=== PATIENT | male | born 1985 | race Caucasian/White ===

== ENCOUNTER 2024-04-04 07:44 | Outpatient (CLI) | payer OTHER, SELFPAY ==
--- NOTE | 2024-04-04 08:15 | CRLHL7_ITS ---
For Patients: As a result of the Century Cures Act, medical imaging exams and procedure reports are released immediately into your electronic medical record. You may view this report before your referring provider. If you have questions, please contact your health care provider. Indication: LEFT HIP IMPINGEMENT SYNDROME Procedure : Informed consent was obtained. The site was marked. Time-out was performed. The skin of the left hip was cleansed with ChloraPrep. A sterile drape was placed. 8 cc of 1 percent lidocaine was administered for superficial anesthesia. Subsequently a 22 gauge spinal needle was introduced into the left hip joint under intermittent fluoroscopic guidance. Injection of 2 cc nonionic Omnipaque 240 contrast confirmed intra-articular location. Subsequently 11 cc of dilute gadolinium were injected. The needle was removed and hemostasis achieved with direct pressure. A dressing was placed. The patient tolerated the procedure well without immediate complication and was immediately sent to MRI for imaging. Total fluoroscopy time 16 seconds. Impression: Successful fluoroscopically guided left hip arthrogram for MRI. Dictated by Olvin Flores MD @ 04/04/2024 10:10:32 AM (Electronically Signed)
--- NOTE | 2024-04-04 09:15 | CRLHL7_ITS ---
For Patients: As a result of the Century Cures Act, medical imaging exams and procedure reports are released immediately into your electronic medical record. You may view this report before your referring provider. If you have questions, please contact your health care provider. EXAM: MRI OF THE LEFT HIP, WITH INTRA-ARTICULAR DILUTE GADOLINIUM CONTRAST CLINICAL INDICATION: Hip pain. Impingement syndrome. PRIOR SURGERY: None. COMPARISON PLAIN FILMS: Arthrogram fluoroscopic imaging 04 April 2024 COMPARISON CROSS-SECTIONAL IMAGING STUDIES: None. TECHNICAL: Coronal T1 and PD fat-sat pelvis large field images. Axial, oblique axial, coronal and sagittal T1 fat sat and axial and sagittal PD fat-sat small field left hip sequences with dilute intra-articular gadolinium. 1.5 [employer] MR scanner. FINDINGS: LEFT HIP: Articular Cartilage/Surfaces: Articular surfaces appear smooth without focal chondral defect or subchondral marrow changes. Labrum: Shallow indistinct partial-thickness tearing at the labral chondral junction superior labrum with slightly blunted diminutive superior labrum. No other linear tear or displacement. No periarticular fluid collection. Joint Bodies: None seen. Proximal Femoral Morphology: Fullness at the superior head neck offset. Mildly enlarged alpha angle estimated at 53 degrees at the central femoral neck. This is more pronounced superiorly were it extends towards 70 degrees Acetabular Morphology: No focal or global retroversion. No significant overcoverage. AVN: Not present. RIGHT HIP: Similar appearance of cam type impingement morphology of the right femoral head neck offset. Physiologic fluid in the joint. No degenerative or inflammatory arthritis finding. No obvious labral tear. OSSEOUS STRUCTURES: No fracture, marrow edema or marrow replacement process. MUSCULOTENDINOUS STRUCTURES AND BURSAE: Tendons and visualized musculotendinous units are intact. No muscle atrophy, or edema to suggest strain changes. No trochanteric or iliopsoas bursitis. INTRAPELVIC CONTENTS: No mass, fluid collection or adenopathy. No inguinal hernia. IMPRESSION: 1. 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 2. Shallow partial tear at the labral chondral junction superior left hip labrum with some blunting of the free articular margin. No osteoarthritis or chondromalacia. 3. CT LILIAN protocol would better characterize bony morphology of the femur and acetabula. Dictated by Graeme Miguel MD @ 04/04/2024 11:55:49 AM (Electronically Signed)
== END 2024-04-04 07:45 | disposition home or self-care (01) ==
PROVIDERS: PCP Student in an Organized Health Care Education/Training Program; Visit Provider Family Medicine
DX: M25.852 Other specified joint disorders, left hip (principal); M25.552 Pain in left hip; S73.192A Other sprain of left hip, initial encounter; R10.32 Left lower quadrant pain; N50.812 Left testicular pain; Z02.6 Encounter for examination for insurance purposes
CPT/HCPCS: 27093; 73525; 73722; 77002; A9575; Q9966

== ENCOUNTER 2024-08-05 09:00 | Outpatient (RCR) | payer OTHER, SELFPAY | END 2024-10-17 13:23 | disposition home or self-care (01) | PROVIDERS: PCP Student in an Organized Health Care Education/Training Program; Visit Provider Family Medicine | DX: S73.192S Other sprain of left hip, sequela (principal); M25.852 Other specified joint disorders, left hip; M25.552 Pain in left hip; Z02.6 Encounter for examination for insurance purposes; Z51.89 Encounter for other specified aftercare | CPT/HCPCS: 97110; 97140; 97161 ==

== ENCOUNTER 2024-12-23 15:30 | Outpatient (RCR) | payer OTHER, SELFPAY | END 2025-02-28 09:02 | disposition home or self-care (01) | PROVIDERS: PCP Student in an Organized Health Care Education/Training Program; Visit Provider Student in an Organized Health Care Education/Training Program | DX: S73.192S Other sprain of left hip, sequela (principal); M25.852 Other specified joint disorders, left hip; Z47.89 Encounter for other orthopedic aftercare; Z51.89 Encounter for other specified aftercare | CPT/HCPCS: 97110; 97140; 97161 ==